=== PATIENT | female | born 1950 | race Caucasian/White ===

== ENCOUNTER 2017-04-29 06:00 | Emergency (ER) | END 2017-04-29 09:35 | disposition home or self-care (01) ==

== ENCOUNTER 2017-05-13 12:15 | Emergency (ER) | END 2017-05-13 19:13 | disposition home or self-care (01) ==

== ENCOUNTER 2017-09-16 15:20 | Emergency (ER) | END 2017-09-16 23:39 | disposition home or self-care (01) ==